=== PATIENT | female | born 1980 | race Caucasian/White ===

== ENCOUNTER 2018-02-12 20:53 | Inpatient (IN) | payer BC ==
[~2018-02-12] VITALS: Ht 162.6 cm; Wt 82.0 kg
[2018-02-12] MEDS ORDERED: NEWBORN KIT ONE (21:04)
[2018-02-12] MEDS ORDERED: OXYTOCIN 30U/ 0.9% NaCL 500ML 500 ML IV ONE (21:04)
[2018-02-12] MEDS: D5%-LACTATED RINGERS 1,000 ML IV SCH (21:04)
[2018-02-12] MEDS ORDERED: MISOPROSTOL 200 MCG TABLET ONE (21:09)
[2018-02-12] MEDS ORDERED: OXYTOCIN 30U/ 0.9% NaCL 500ML 500 ML ONE ×2 (21:09→22:59)
[2018-02-12] MEDS: LACTATED RINGERS 1,000 ML IV SCH ×2 (21:21→23:31)
[2018-02-12 21:26] LABS: BASOPHILS # (AUTO) 0.02 x10^3/uL (0-0.1); BASOPHILS % (AUTO) 0 % (0-1); EOSINOPHILS # (AUTO) 0.05 x10^3/uL (0-0.4); EOSINOPHILS % (AUTO) 0 % (1-7); LYMPHOCYTES # (AUTO) 1.92 x10^3/uL (1-3.4); LYMPHOCYTES % (AUTO) 13 % (22-44); MD NO; MEAN CORPUSCULAR HGB CONC 33.7 g/dL (32.4-35.8); MEAN CORPUSCULAR VOLUME 89.2 fL (80-100); MEAN PLATELET VOLUME 7.7 fL (7.4-10.4); MONOCYTES # (AUTO) 1.16 x10^3/uL (0.2-0.8); MONOCYTES % (AUTO) 8 % (2-9); NEUTROPHILS # (AUTO) 11.84 x10^3/uL (1.8-6.8); NEUTROPHILS % (AUTO) 79 % (42-75); PLATELET COUNT 271 x10^3/uL (130-400); RED CELL DISTRIBUTION WIDTH 14.2 % (9.6-15.2)
[2018-02-12] MEDS ORDERED: FENTANYL PF 100 MCG/2ML IV PRN (21:30)
[2018-02-12] MEDS ORDERED: PENICILLIN GK 5,000,000 UNITS in DEXTROSE 5% 100 ML IVPB ONE (21:30)
[2018-02-12] MEDS ORDERED: ONDANSETRON 2MG/ML, 2ML IVPush PRN (21:30)
[2018-02-12] MEDS ORDERED: FENTANYL PF 100 MCG/2ML ONE (22:17)
[2018-02-12] MEDS ORDERED: ONDANSETRON 2MG/ML, 2ML ONE (22:28)
[2018-02-12] MEDS: FENTANYL PF 100 MCG/2ML IVPush PRN (22:33)
[2018-02-12] MEDS ORDERED: FENTANYL/BUPIV./NS/PF 250 ML EPIDCONT SCH ×2 (23:13→23:49)
[2018-02-12] MEDS ORDERED: LIDOCAINE/PF 1%, 30ML ONE (23:19)
[2018-02-12] MEDS ORDERED: BUPIVACAINE/PF 0.5% ONE (23:23)
[2018-02-12] MEDS: PLEASE ENTER ALLERGIES MC SCH (23:30)
[2018-02-13] MEDS ORDERED: LACTATED RINGERS 1,000 ML IVBOLUS PRN
[2018-02-13] MEDS: LACTATED RINGERS 1,000 ML IV SCH ×4 (00:08→21:04)
[2018-02-13] MEDS: PENICILLIN GK 2,500,000 UNITS in DEXTROSE 5% 100 ML IVPB SCH ×3 (01:30→08:48)
[2018-02-13] MEDS: OXYTOCIN 30U/ 0.9% NaCL 500ML 500 ML IV SCH ×2 (02:45→14:07)
[2018-02-13] MEDS ORDERED: OXYTOCIN 30U/ 0.9% NaCL 500ML 500 ML ONE (02:57)
[2018-02-13] MEDS ORDERED: METHYLERGONOVINE 0.2 MG/ML IM ONE (04:21)
[2018-02-13] MEDS ORDERED: ACETAMINOPHEN 325 MG TABLET PO PRN ×2 (04:30)
[2018-02-13] MEDS ORDERED: MISOPROSTOL 200 MCG TABLET PR PRN (04:30)
[2018-02-13] MEDS ORDERED: OXYcodone/APAP 5/325MG TABLET PO PRN ×2 (04:30)
[2018-02-13] MEDS ORDERED: METHYLERGONOVINE 0.2 MG/ML IM PRN (04:30)
[2018-02-13] MEDS ORDERED: CARBOPROST TROMETHAMINE 250 MCG/ML, 1ML IM PRN (04:30)
[2018-02-13] MEDS: D5%-LACTATED RINGERS 1,000 ML IV SCH ×3 (05:04→16:22)
[2018-02-13] MEDS: IBUPROFEN 600 MG TABLET PO PRN ×3 (05:52→21:32)
[2018-02-13 06:00] VITALS: BP 102/66
[2018-02-13] MEDS: PLEASE ENTER ALLERGIES MC SCH ×3 (07:30→23:30)
[2018-02-13 08:20] VITALS: BP 100/62
[2018-02-13] MEDS: FENTANYL PF 100 MCG/2ML IVPush PRN ×4 (08:37→08:48)
[2018-02-13] MEDS: DOCUSATE 100 MG CAPSULE PO PRN ×2 (08:39→21:32)
[2018-02-13] MEDS: PRENATAL VIT/IRON/FA 1 EACH TABLET PO SCH (08:46)
[2018-02-13 10:26] LABS: BASOPHILS # (AUTO) 0.04 x10^3/uL (0-0.1); BASOPHILS % (AUTO) 0 % (0-1); EOSINOPHILS # (AUTO) 0.06 x10^3/uL (0-0.4); EOSINOPHILS % (AUTO) 0 % (1-7); LYMPHOCYTES # (AUTO) 2.02 x10^3/uL (1-3.4); LYMPHOCYTES % (AUTO) 12 % (22-44); MD NO; MEAN CORPUSCULAR HEMOGLOBIN 30.3 pg (27.0-34.8); MEAN CORPUSCULAR HGB CONC 33.8 g/dL (32.4-35.8); MEAN CORPUSCULAR VOLUME 89.6 fL (80-100); MEAN PLATELET VOLUME 7.7 fL (7.4-10.4); MONOCYTES % (AUTO) 8 % (2-9); NEUTROPHILS # (AUTO) 12.88 x10^3/uL (1.8-6.8); NEUTROPHILS % (AUTO) 79 % (42-75); PLATELET COUNT 234 x10^3/uL (130-400); RED BLOOD COUNT 4.36 x10^6/uL (3.82-5.3); RED CELL DISTRIBUTION WIDTH 13.9 % (9.6-15.2)
[2018-02-13 12:45] VITALS: BP 106/67
[2018-02-13 19:50] VITALS: BP 95/58
[2018-02-14] MEDS: OXYTOCIN 30U/ 0.9% NaCL 500ML 500 ML IV SCH ×2 (00:07→10:07)
[2018-02-14 00:20] VITALS: BP 94/58
[2018-02-14] MEDS: IBUPROFEN 600 MG TABLET PO PRN ×3 (03:28→15:25)
[2018-02-14] MEDS: D5%-LACTATED RINGERS 1,000 ML IV SCH ×2 (04:40→13:04)
[2018-02-14] MEDS: LACTATED RINGERS 1,000 ML IV SCH ×2 (05:04→13:04)
[2018-02-14] MEDS: PLEASE ENTER ALLERGIES MC SCH (07:30)
[2018-02-14 08:35] VITALS: BP 94/57
[2018-02-14] MEDS: PRENATAL VIT/IRON/FA 1 EACH TABLET PO SCH (09:00)
== END 2018-02-14 16:15 | disposition home or self-care (01) | DRG 807 ==
LOC: LDOP 20:53 → LDIP 21:06 → 2NW 02-13 05:25
PROVIDERS: ADMIT Obstetrics & Gynecology Gynecology; ATTEND Obstetrics & Gynecology Gynecology
PROC: 10E0XZZ Delivery of Products of Conception, External Approach (ICD-10-PCS; principal; 2018-02-13)
PROC: 0HQ9XZZ Repair Perineum Skin, External Approach (ICD-10-PCS; 2018-02-13)
PROC: 3E0R3BZ Introduction of Anesthetic Agent into Spinal Canal, Percutaneous Approach (ICD-10-PCS; 2018-02-13)
PROC: 00HU33Z Insertion of Infusion Device into Spinal Canal, Percutaneous Approach (ICD-10-PCS; 2018-02-13)
DX: O99.284 Endocrine, nutritional and metabolic diseases complicating childbirth (principal); Z37.0 Single live birth; E03.9 Hypothyroidism, unspecified; O99.824 Streptococcus B carrier state complicating childbirth; Z3A.40 40 weeks gestation of pregnancy; O70.0 First degree perineal laceration during delivery
CPT/HCPCS: 36415; 85025; 86850; 86900; G0378; J2405; J2540; J3010; J2210; J2590; J7120

== ENCOUNTER → 2019-03-10 | Outpatient (CLI) | payer BC ==
[2019-03-10 10:05] LABS: ALANINE AMINOTRANSFERASE 28 U/L (12-78); ALKALINE PHOSPHATASE 58 U/L (45-117); BILIRUBIN,TOTAL 0.5 mg/dL (0.2-1.0); CHOL/HDL RATIO 2.9; CHOLESTEROL, TOTAL 145 mg/dL (140-239); CREATININE 0.66 mg/dL (0.55-1.02); FREE T4 (FREE THYROXINE) 1.14 ng/dL (0.76-1.46); HDL CHOL % 34 % (28-40); HDL CHOLESTEROL (DIRECT) 50 mg/dL (40-60); LDL CHOLESTEROL,CALCULATED 86 mg/dL (54-169); LDL/HDL RATIO 1.7 (0.5-3.0); TOTAL PROTEIN 6.9 g/dL (6.4-8.2); TRIGLYCERIDES 47 mg/dL (50-200); VLDL CHOLESTEROL 9 mg/dL (0-25)
[2019-03-10 10:23] LABS: ALBUMIN 3.9 g/dL (3.4-5.0); CALCIUM 8.5 mg/dL (8.5-10.1); CHLORIDE 107 mmol/L (98-107)
[2019-03-10 10:25] LABS: ANION GAP 3 mmol/L (5-15)
== END | disposition home or self-care (01) ==
LOC: LAB 09:29
PROVIDERS: ATTEND Physician Assistant
DX: E03.9 Hypothyroidism, unspecified (principal); E78.5 Hyperlipidemia, unspecified; R73.9 Hyperglycemia, unspecified
CPT/HCPCS: 36415; 80053; 80061; 84439; 84443